=== PATIENT | male | born 1945 | race Caucasian/White ===

== ENCOUNTER → 2016-05-20 | Outpatient (CLI) | payer MEDICARE ==
[~2016-05-20] MED LIST: ALOE1LIQ PO; AMLO10TA2 PO; FOSI20TA PO; METO50TA PO; VITA100064 PO
== END ==
LOC: CPRE 10:22
PROVIDERS: ATTEND Optometrist Occupational Vision
DX: H25.11 Age-related nuclear cataract, right eye (principal)

== ENCOUNTER → 2016-06-12 | Day surgery (SDC) | payer MEDICARE ==
[~2016-06-12] VITALS: Ht 182.9 cm; Wt 99.0 kg
[~2016-06-12] MED LIST changes: +CYCLOPENTOLATE HCL 1% OPHT SOLN 2 ML BTL ONE; +FLURBIPROFEN 0.03% OPHT SOLN 2.5 ML BTL ONE; +LIDOCAINE HCL 2% JELLY 5 ML SYRINGE ONE; +MIDAZOLAM HCL 2 MG/2 ML VIAL ONE; +PHENYLEPHRINE HCL 10% OPTH SOLN 5 ML BTL ONE; +PROPARACAINE HCL 0.5% OPHT SOLN 15 ML BTL ONE; +SODIUM CHLORID 0.9% 500 ML INJ 500 ML ONE; +TROPICAMIDE 1% OPHT SOLN 15 ML BTL ONE
[2016-06-12 06:40] VITALS: BP 169/79; PULSE 43; RESP 16; TEMP 98.6; O2SAT 97
[2016-06-12] MEDS: LIDOCAINE HCL 1% 30 ML VIAL ONE ×2 (07:29→08:02)
[2016-06-12] MEDS: TOBRAMYCIN/DEXAMETHASONE OPTH OINT 3.5 GM TUBE ONE ×2 (07:35→08:18)
[2016-06-12 08:55] VITALS: BP 135/83; PULSE 42; RESP 16; TEMP 98; O2SAT 98
--- NOTE | 2016-06-12 10:42 | MP ---
cc: ROHIT WETZEL M.D. FORMERLY [facility], [facility] #[id number] DATE OF SURGERY 06/12/2016 PREOPERATIVE DIAGNOSIS Visually significant cataract right eye. POSTOPERATIVE DIAGNOSIS Visually significant cataract right eye. OPERATION Phacoemulsification with posterior chamber lens implantation, right eye. SURGEON Rohit Wetzel MD ANESTHESIA Topical with MAC COMPLICATIONS None PROCEDURE After informed consent was obtained, the patient was brought into the operative suite and placed on appropriate monitors by the Anesthesia Service. The patient had been given dilating drops and topical lidocaine gel in the holding area. The patient's operative eye was then prepped and draped in the usual sterile fashion. A wire lid speculum was placed. Further 2% lidocaine was then dropped on the cornea prior to beginning the procedure. A paracentesis incision was made in the peripheral cornea with a 1 mm deandre keratome. The anterior chamber was filled with viscoelastic. The anterior chamber was then entered through a stepped, clear corneal incision using a sharp 3 mm deandre keratome. A circular tear capsulorrhexis was then made with a bent needle cystitome. Following hydrodissection of the lens nucleus with balance saline, phacoemulsification of the nucleus was performed using a modified chopping technique. The remaining cortex was removed with irrigation/aspiration. The prior two procedures were both performed using the handpieces of the [employer] phaco unit. The capsular bag was then filled with viscoelastic. The intraocular lens was then injected into the capsular bag and positioned. The type of intraocular lens and its power can be found elsewhere in this chart. The remaining viscoelastic was then removed from the anterior chamber with the IA handpiece. The anterior chamber was reformed with balanced saline. The wound was then closed securely with stromal hydration. It was found to be watertight to an intraocular pressure of at least 30 mmHg by palpation. A small amount of balanced salt solution was then removed through the paracentesis site and the intraocular pressure at the end of the case was approximately 20 by palpation. All drapes were then removed. TobraDex ointment was then placed in the eye, which was closed beneath a semi-pressure patch dressing. The patient tolerated this procedure well and left the operating room awake and alert. The patient is to follow-up in my office in the morning. MD CHANDA Keene/MADDEI /10:08 AM /10:29 AM
== END | disposition home or self-care (01) ==
LOC: CSDC 05:47
PROVIDERS: ATTEND Optometrist Occupational Vision
DX: H25.11 Age-related nuclear cataract, right eye (principal)
CPT/HCPCS: 00142; 66984; J2250; J7040; V2632

== ENCOUNTER → 2016-08-28 | Day surgery (SDC) | payer MEDICARE ==
[~2016-08-28] VITALS: Ht 182.9 cm; Wt 99.5 kg
[~2016-08-28] MED LIST changes: -MIDAZOLAM HCL 2 MG/2 ML VIAL ONE
[2016-08-28 06:55] VITALS: BP 136/84; PULSE 40; RESP 18; TEMP 98.2; O2SAT 97
[2016-08-28] MEDS: LIDOCAINE HCL 1% PF 30 ML VIAL ONE ×2 (08:08→08:13)
[2016-08-28] MEDS: TOBRAMYCIN/DEXAMETHASONE OPTH OINT 3.5 GM TUBE ONE ×2 (08:09→08:28)
[2016-08-28 09:00] VITALS: BP 120/71; PULSE 48; RESP 16; TEMP 98; O2SAT 97
--- NOTE | 2016-08-29 12:39 | MP ---
cc: ROHIT WETZEL MD [facility] #[id number] DATE OF SURGERY 08/28/2016 PREOPERATIVE DIAGNOSIS Visually significant cataract left eye. POSTOPERATIVE DIAGNOSIS Visually significant cataract left eye. OPERATION Phacoemulsification with posterior chamber lens implantation, left eye. SURGEON Rohit Wetzel MD ANESTHESIA Topical with MAC COMPLICATIONS None PROCEDURE After informed consent was obtained, the patient was brought into the operative suite and placed on appropriate monitors by the Anesthesia Service. The patient had been given dilating drops and topical lidocaine gel in the holding area. The patient's operative eye was then prepped and draped in the usual sterile fashion. A wire lid speculum was placed. Further 2% lidocaine was then dropped on the cornea prior to beginning the procedure. A paracentesis incision was made in the peripheral cornea with a 1 mm deandre keratome. The anterior chamber was filled with viscoelastic. The anterior chamber was then entered through a stepped, clear corneal incision using a sharp 3 mm deandre keratome. A circular tear capsulorrhexis was then made with a bent needle cystitome. Following hydrodissection of the lens nucleus with balance saline, phacoemulsification of the nucleus was performed using a modified chopping technique. The remaining cortex was removed with irrigation/aspiration. The prior two procedures were both performed using the handpieces of the [employer] phaco unit. The capsular bag was then filled with viscoelastic. The intraocular lens was then injected into the capsular bag and positioned. The type of intraocular lens and its power can be found elsewhere in this chart. The remaining viscoelastic was then removed from the anterior chamber with the IA handpiece. The anterior chamber was reformed with balanced saline. The wound was then closed securely with stromal hydration. It was found to be watertight to an intraocular pressure of at least 30 mmHg by palpation. A small amount of balanced salt solution was then removed through the paracentesis site and the intraocular pressure at the end of the case was approximately 20 by palpation. All drapes were then removed. TobraDex ointment was then placed in the eye, which was closed beneath a semi-pressure patch dressing. The patient tolerated this procedure well and left the operating room awake and alert. The patient is to follow-up in my office in the morning. MD CHANDA Keene/MADDIE /9:59 AM /12:36 PM
== END | disposition home or self-care (01) ==
LOC: PHSDC 06:07
PROVIDERS: ATTEND Optometrist Occupational Vision
DX: H25.12 Age-related nuclear cataract, left eye (principal)
CPT/HCPCS: 00142; 66984; J7040; V2632

== ENCOUNTER 2017-09-01 09:38 | Emergency (ER) | payer MEDICARE ==
[~2017-09-01] VITALS: Ht 182.9 cm; Wt 93.9 kg
[~2017-09-01 09:38] MED LIST changes: -CYCLOPENTOLATE HCL 1% OPHT SOLN 2 ML BTL ONE; -FLURBIPROFEN 0.03% OPHT SOLN 2.5 ML BTL ONE; -LIDOCAINE HCL 2% JELLY 5 ML SYRINGE ONE; -PHENYLEPHRINE HCL 10% OPTH SOLN 5 ML BTL ONE; -PROPARACAINE HCL 0.5% OPHT SOLN 15 ML BTL ONE; -SODIUM CHLORID 0.9% 500 ML INJ 500 ML ONE; -TROPICAMIDE 1% OPHT SOLN 15 ML BTL ONE
[2017-09-01] MEDS ORDERED: IOHEXOL 350 MG/ML 10 ML VIAL (for RAD DIAG) IVCONTRAST ONE (09:39)
[2017-09-01 09:59] VITALS: BP 104/72; PULSE 72; RESP 18; TEMP 99.7; O2SAT 97
[2017-09-01 10:32] VITALS: BP 112/65; PULSE 67; RESP 13; O2SAT 98
[2017-09-01] MEDS ORDERED: aloe vera juice (10:32)
[2017-09-01] MEDS ORDERED: SODIUM CHLOR 0.9% 1000 ML INJ 1,000 ML IV ONE (11:01)
--- NOTE | 2017-09-01 11:08 | PD ---
HPI Chief Complaint: GI Complaint Time Seen by Provider: 10:38 Travel History International Travel<30 days: Yes Contact w/Intl Traveler<30days: Yes Name of Country Traveled to: [facility] Traveled to known affect area: Yes History of Present Illness HPI The patient is a 72-year-old male who presents to the emergency department for fever, abdominal distention, and diarrhea. The patient recently traveled to [facility] for a mission trip. The patient arrived in [facility] on Thursday , did have some local food but did not drink the local water, and developed abdominal distention and diarrhea on Thursday. The patient states he was brushing his teeth and washing his dishes with local water, however, drink bottled water the rest of the time. The patient states he developed diarrhea on Thursday which she describes as loose, watery, with the last several movements "muddy". He also notes fever which has been daily, will defervesce with Tylenol , or, will return 4 hours later. He does note the fevers have been as high as 100.7 axillary at home. He denies any headache, retro-orbital headache, or diffuse body aches. He does complain of dehydration with dark-colored urine. He did not receive any vaccinations prior to going to [facility] and did not take any antimalarial medicines while in [facility]. He does note one other individual had similar symptoms while they were in [facility]. He denies any known history of diverticulitis. The patient's primary physician is Dr. Gianni Prieto. 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 bilateral CATARACT) Genitourinary Surgery: No Gynecologic Surgery: No Joint Replacement: No Oral Surgery: Yes (TONSILLECTOMY) Pacemaker: No Thoracic Surgery: No Tonsillectomy: Yes Other Surgery: Yes Social History Alcohol Use: Yes (socially) Tobacco Use: No Substance Use: No Allergies-Medications (Allergen,Severity, Reaction): Coded Allergies: No Known Allergies (Unverified Allergy, Unknown, 09/01/17) Reported Meds & Prescriptions Reported Meds & Active Scripts Active Reported [aloe vera juice] Metoprolol Tartrate 50 Mg Tab 50 Mg PO DAILY Fosinopril (Fosinopril Sodium) 20 Mg Tab 20 Mg PO BID Amlodipine (Amlodipine Besylate) 10 Mg Tab 5 Mg PO DAILY Review of Systems Except as stated in HPI: all other systems reviewed are Neg General / Constitutional: Positive: Fever HENT: No: Lightheadedness Cardiovascular: No: Chest Pain or Discomfort Respiratory: No: Cough, Shortness of Breath Gastrointestinal: Positive: Diarrhea, Abdominal Pain (Distention), Loss of Appetite, No: Nausea, Vomiting Genitourinary: Positive: Other (Dark-colored urine), No: Dysuria Musculoskeletal: Positive: Weakness Physical Exam Narrative GENERAL: Awake, alert, pleasant 72-year-old male who appears his stated age and is in no acute respiratory distress. SKIN: Focused skin assessment warm/dry. HEAD: Atraumatic. Normocephalic. EYES: Pupils equal and round. No scleral icterus. No injection or drainage. ENT: No nasal bleeding or discharge. Mucous membranes pink and moist. NECK: Trachea midline. No JVD. CARDIOVASCULAR: Irregular, no murmur noted. RESPIRATORY: No accessory muscle use. Clear to auscultation. Breath sounds equal bilaterally. GASTROINTESTINAL: Abdomen soft, tenderness left upper quadrant and left lower quadrant. No guarding or rigidity. MUSCULOSKELETAL: No obvious deformities. No clubbing. No cyanosis. No edema. NEUROLOGICAL: Awake and alert. No obvious cranial nerve deficits. Motor grossly within normal limits. Normal speech. PSYCHIATRIC: Appropriate mood and affect; insight and judgment normal. Data Data Last Documented VS Vital Signs Date Time Temp Pulse Resp B/P (MAP) Pulse Ox O2 Delivery O2 Flow Rate FiO2 09/01/17 14:52 99.1 73 14 109/59 (76) 94 Room Air Orders Orders Electrocardiogram (09/01/17 ) Complete Blood Count With Diff (09/01/17 11:01) Comprehensive Metabolic Panel (09/01/17 11:01) Lipase (09/01/17 11:01) Ct Abd/Pel W Iv Contrast(Rout) (09/01/17 ) Iv Access Insert/Monitor (09/01/17 11:01) Ecg Monitoring (09/01/17 11:01) Oximetry (09/01/17 11:01) Sodium Chlor 0.9% 1000 Ml Inj (Ns 1000 M (09/01/17 11:01) Sodium Chloride 0.9% Flush (Ns Flush) (09/01/17 11:15) Blood Culture (09/01/17 11:01) Enteric Path (Stool) (09/01/17 11:01) Stool Ova And Parasite Screen (09/01/17 11:01) Stool Wbc (Leukocytes) (09/01/17 11:01) Malaria (09/01/17 11:09) Oral Contrast - Adult (09/01/17 12:07) Diatrizoate Liq ( Gastroview Liq) (09/01/17 12:07) Sodium Chlorid 0.9% 500 Ml Inj (Ns 500 M (09/01/17 12:45) Iohexol 350 Inj (Omnipaque 350 Inj) (09/01/17 09:39) Labs Laboratory Tests Test 09/01/17 11:05 White Blood Count 3.7 TH/MM3 Red Blood Count 5.40 MIL/MM3 Hemoglobin 16.1 GM/DL Hematocrit 48.0 % Mean Corpuscular Volume 88.9 FL Mean Corpuscular Hemoglobin 29.8 PG Mean Corpuscular Hemoglobin Concent 33.6 % Red Cell Distribution Width 13.9 % Platelet Count 89 TH/MM3 Mean Platelet Volume 8.9 FL Neutrophils (%) (Auto) 52.5 % Lymphocytes (%) (Auto) 33.9 % Monocytes (%) (Auto) 11.7 % Eosinophils (%) (Auto) 0.4 % Basophils (%) (Auto) 1.5 % Neutrophils # (Auto) 2.0 TH/MM3 Lymphocytes # (Auto) 1.3 TH/MM3 Monocytes # (Auto) 0.4 TH/MM3 Eosinophils # (Auto) 0.0 TH/MM3 Basophils # (Auto) 0.1 TH/MM3 CBC Comment AUTO DIFF Differential Comment AUTO DIFF CONFIRMED Platelet Estimate LOW Platelet Morphology Comment NORMAL Blood Urea Nitrogen 26 MG/DL Creatinine 1.43 MG/DL Random Glucose 108 MG/DL Total Protein 7.2 GM/DL Albumin 3.6 GM/DL Calcium Level 8.5 MG/DL Alkaline Phosphatase 119 U/L Aspartate Amino Transf (AST/SGOT) 135 U/L Alanine Aminotransferase (ALT/SGPT) 85 U/L Total Bilirubin 0.9 MG/DL Sodium Level 136 MEQ/L Potassium Level 4.3 MEQ/L Chloride Level 101 MEQ/L Carbon Dioxide Level 26.8 MEQ/L Anion Gap 8 MEQ/L Estimat Glomerular Filtration Rate 48 ML/MIN Lipase 213 U/L [facility] Medical Decision Making Medical Screen Exam Complete: Yes Emergency Medical Condition: Yes Medical Record Reviewed: Yes Interpretation(s) Laboratory Tests Test 09/01/17 11:05 White Blood Count 3.7 TH/MM3 Red Blood Count 5.40 MIL/MM3 Hemoglobin 16.1 GM/DL Hematocrit 48.0 % Mean Corpuscular Volume 88.9 FL Mean Corpuscular Hemoglobin 29.8 PG Mean Corpuscular Hemoglobin Concent 33.6 % Red Cell Distribution Width 13.9 % Platelet Count 89 TH/MM3 Mean Platelet Volume 8.9 FL Neutrophils (%) (Auto) 52.5 % Lymphocytes (%) (Auto) 33.9 % Monocytes (%) (Auto) 11.7 % Eosinophils (%) (Auto) 0.4 % Basophils (%) (Auto) 1.5 % Neutrophils # (Auto) 2.0 TH/MM3 Lymphocytes # (Auto) 1.3 TH/MM3 Monocytes # (Auto) 0.4 TH/MM3 Eosinophils # (Auto) 0.0 TH/MM3 Basophils # (Auto) 0.1 TH/MM3 CBC Comment AUTO DIFF Differential Comment AUTO DIFF CONFIRMED Platelet Estimate LOW Platelet Morphology Comment NORMAL Blood Urea Nitrogen 26 MG/DL Creatinine 1.43 MG/DL Random Glucose 108 MG/DL Total Protein 7.2 GM/DL Albumin 3.6 GM/DL Calcium Level 8.5 MG/DL Alkaline Phosphatase 119 U/L Aspartate Amino Transf (AST/SGOT) 135 U/L Alanine Aminotransferase (ALT/SGPT) 85 U/L Total Bilirubin 0.9 MG/DL Sodium Level 136 MEQ/L Potassium Level 4.3 MEQ/L Chloride Level 101 MEQ/L Carbon Dioxide Level 26.8 MEQ/L Anion Gap 8 MEQ/L Estimat Glomerular Filtration Rate 48 ML/MIN Lipase 213 U/L Last Impressions Abdomen/Pelvis CT 09/01/17 0000 Signed Impressions: Service Date/Time: Friday, September 01, 2017 13:29 - CONCLUSION: 1. Right renal cyst. 2. Left adrenal nodule. 3. Nonobstructing left renal calculus. 4. Fat containing umbilical hernia. 5. Diverticulosis without diverticulitis. 6. Prominent prostate. Keith Rodriguez MD Differential Diagnosis Differential diagnosis includes diverticulitis, infectious diarrhea, inflammatory diarrhea, parasite, dehydration, acute kidney injury, malaria, dengue fever, viral syndrome, gastroenteritis, colitis. Narrative Course IV was established, labs are drawn and sent, and the patient was placed on cardiac telemetry monitoring and continuous pulse oximetry monitoring. EKG was ordered and interpreted. CT of the abdomen and pelvis with IV and oral contrast was ordered. Ova/parasite and enteric pathogens were ordered via stool. Laboratory evaluation reveals a white count is slightly low, platelets are low, BUN and creatinine are slightly elevated. CT the abdomen and pelvis reveals chronic findings, however, no acute findings. The patient was able to give one small stool sample, appear to be more solid than diarrhea. This will be sent for ova and parasites as well as enteric pathogens. The patient appears to have infectious diarrhea, unsure if this is a viral or bacterial origin. He is advised to follow-up with his primary physician, Dr. Prieto. Diagnosis Primary Impression: Diarrhea Qualified Codes: R19.7 - Diarrhea, unspecified Patient Instructions: General Instructions Additional Instructions: Please provide the patient a copy of his CT results and lab results at discharge. Stool studies are pending, follow-up with Dr. Prieto. Smaller meals , more frequently, bland diet and advance as tolerated. Plenty fluids to stay hydrated. Disposition: 01 DISCHARGE HOME Condition: Stable Samir Pearson MD September 01, 2017 11:08
[2017-09-01 11:13] VITALS: O2SAT 98
[2017-09-01] MEDS ORDERED: SODIUM CHLORIDE 0.9% FLUSH 10 ML FLUSH IVF PRN (11:15)
[2017-09-01 11:39] LABS: BASOPHIL # 0.1 TH/MM3 (0-0.2); BASOPHIL % 1.5 % (0.0-2.0); EOSINOPHIL % 0.4 % (0.0-4.0); HEMOGLOBIN 16.1 GM/DL (13.0-17.0); LYMPH % 33.9 % (9.0-44.0); LYMPHOCYTE # 1.3 TH/MM3 (1.0-4.8); MEAN CELL VOLUME 88.9 FL (80.0-100.0); MEAN CORPUSCULAR HEMOGLOBIN 29.8 PG (27.0-34.0); MEAN CORPUSCULAR HGB CONC 33.6 % (32.0-36.0); MEAN PLATELET VOLUME 8.9 FL (7.0-11.0); MONO % 11.7 % (0.0-8.0); MONOCYTE # 0.4 TH/MM3 (0-0.9); NEUT % 52.5 % (16.0-70.0); PLATELET COUNT 89 TH/MM3 (150-450); RED CELL DISTRIBUTION WIDTH 13.9 % (11.6-17.2); WHITE BLOOD COUNT 3.7 TH/MM3 (4.0-11.0)
[2017-09-01 12:05] VITALS: BP 112/65; PULSE 83; RESP 16; O2SAT 97
[2017-09-01 12:07] LABS: ALKALINE PHOSPHATASE 119 U/L (45-117); TOTAL BILIRUBIN ADULT 0.9 MG/DL (0.2-1.0); TOTAL PROTEIN 7.2 GM/DL (6.4-8.2)
[2017-09-01] MEDS ORDERED: DIATRIZOATE MEGLUM/DIATRIZOATE SOD 9 ML CUP ONE (12:07)
[2017-09-01 12:15] LABS: ALBUMIN 3.6 GM/DL (3.4-5.0); BLOOD UREA NITROGEN 26 MG/DL (7-18); CALCIUM 8.5 MG/DL (8.5-10.1); CREATININE 1.43 MG/DL (0.60-1.30); GLOMERULAR FILTRATION RATE 48 ML/MIN (>89); GLUCOSE,RANDOM 108 MG/DL (74-106)
[2017-09-01 12:16] LABS: ALT (GPT) 85 U/L (12-78); AST (GOT) 135 U/L (15-37); BICARBONATE 26.8 MEQ/L (21.0-32.0); CHLORIDE 101 MEQ/L (98-107); SODIUM (NA) 136 MEQ/L (136-145)
[2017-09-01] MEDS ORDERED: SODIUM CHLORID 0.9% 500 ML INJ 500 ML IV ONE (12:45)
--- NOTE | 2017-09-01 14:03 | RADRPT ---
EXAM DATE/TIME: 09/01/2017 13:29 [facility] COMPARISON: No previous studies available for comparison. INDICATIONS : Patient complains of fever, chills. IV CONTRAST: 70 cc Omnipaque 350 (iohexol) IV ORAL CONTRAST: Prescribed oral contrast ingested. RADIATION DOSE: 8.83 CTDIvol (mGy) MEDICAL HISTORY : Hypertension. Hernia, hiatal. SURGICAL HISTORY : None. ENCOUNTER: Initial ACUITY: 4 - 6 days PAIN SCALE: 0/10 LOCATION: abdomen TECHNIQUE: Volumetric scanning of the abdomen and pelvis was performed. Using automated exposure control and ad justment of the mA and/or kV according to patient size, radiation dose was kept as low as reasonably achievable to obtain optimal diagnostic quality images. DICOM format image data is available electro nically for review and comparison. FINDINGS: Lung bases are clear. There are degenerative changes of the spine. No pleural or pericardial effusion s are seen. Liver, gallbladder, pancreas, right adrenal gland unremarkable. 1.9 cm left adrenal nodul e is noted. Nonobstructing 3 mm left lower pole renal calculus. 3.4 cm cyst at the right lower pole k [place]. Fat containing umbilical hernia. Urinary bladder unremarkable. Prostate is prominent in size m easuring 5 x 6.1 cm in AP and transverse dimension. There is diverticulosis of the sigmoid colon with out diverticulitis. No adenopathy or aneurysm. CONCLUSION: 1. Right renal cyst. 2. Left adrenal nodule. 3. Nonobstructing left renal calculus. 4. Fat containing umbilical hernia. 5. Diverticulosis without diverticulitis. 6. Prominent prostate. Keith Rodriguez MD on September 01, 2017 at 13:58 Board Certified Radiologist. This report was verified electronically.
[2017-09-01 14:52] VITALS: BP 109/59; PULSE 73; RESP 14; TEMP 99.1; O2SAT 94
--- NOTE | 2017-09-01 18:03 | EKG ---
Date Performed: 09/01/2017 Time Performed: 11:05:32 PTAGE: 72 years EKG: ATRIAL FIBRILLATION LOW QRS VOLTAGE IN EXTREMITY LEADS ABNORMAL RHYTHM ECG NO PREVIOUS TRACING DOCTOR: Elham Rivers Interpretating Date/Time 09/01/2017 18:00:46
== END 2017-09-01 16:04 | disposition home or self-care (01) ==
LOC: NEPC 09:38
DX: R19.7 Diarrhea, unspecified (principal); N20.0 Calculus of kidney; K42.9 Umbilical hernia without obstruction or gangrene; I10 Essential (primary) hypertension
CPT/HCPCS: 74177; 80053; 83690; 85025; 87015; 87040; 87205; 87207; 87328; 87329; 87506; 93005; 96360; 96361; 99285; J7030; J7040; Q9963; Q9967